=== PATIENT | female | born 1935 ===

== ENCOUNTER 2018-12-20 17:04 | Inpatient (IN) | payer MEDICARE, MEDICAID ==
[2018-12-20 18:20] LABS: BASO % 0.6 % (0.0-2.0); EOS % 0.3 % (0.0-4.0); HEMOGLOBIN 11.4 g/dL (11.0-16.0); LYMPH # 1.6 K/uL (1.0-4.3); LYMPH % 21.5 % (20.0-40.0); MEAN CELL VOLUME 91.9 fL (81.0-99.0); MEAN CORPUSCULAR HEMOGLOBIN 30.6 pg (27.0-31.0); MEAN CORPUSCULAR HGB CONC 33.3 g/dL (33.0-37.0); MEAN PLATELET VOLUME 8.4 fL (7.2-11.7); MONO # 0.8 K/uL (0.0-0.8); MONO % 10.8 % (0.0-10.0); NEUT # 4.9 K/uL (1.8-7.0); NEUT % 66.8 % (50.0-75.0); RBC 3.71 Mil/uL (3.80-5.20); RED CELL DISTRIBUTION WIDTH 13.9 % (11.5-14.5); WHITE BLOOD COUNT 7.3 K/uL (4.8-10.8)
[2018-12-20 18:22] LABS: VENOUS BLOOD GAS BASE EXCESS -2.1 mmol/L (0.0-2.0); VENOUS BLOOD GAS PCO2 29 mmHg (40-60); VENOUS BLOOD GAS PO2 43 mm/Hg (30-55); VENOUS BLOOD PH 7.46 (7.32-7.43)
[2018-12-20 18:26] LABS: SQUAMOUS EPITHIAL 10 /hpf (0-5); URINE BACTERIA RARE (<OCC); URINE BILIRUBIN NEGATIVE (NEGATIVE); URINE BLOOD 1+ (NEGATIVE); URINE CLARITY Hazy (Clear); URINE COLOR Amber (YELLOW); URINE GLUCOSE (UA) NORMAL (Normal); URINE LEUKOCYTE ESTERASE TRACE Leu/uL (Negative); URINE PROTEIN 2+ mg/dL (NEGATIVE)
[2018-12-20 18:45] LABS: ALBUMIN 4.1 g/dL (3.5-5.0); ALT/SGPT 17 U/L (9-52); AST/SGOT 34 U/L (14-36); BLOOD UREA NITROGEN 21 mg/dL (7-17); CALCIUM 9.3 mg/dl (8.6-10.4); GFR NON-AFRICAN AMERICAN 53; LIPASE 53 U/L (23-300)
[2018-12-20] MEDS ORDERED: Potassium Chloride 20 mEq ER Tab PO STA (18:48)
[2018-12-20] MEDS ORDERED: Moxifloxacin IV 400mg/250ml NS 400 MG/250 ML BAG IV ONE (18:55)
[2018-12-20 18:57] LABS: B-TYPE NATRIURETIC PEPTIDE 283 pg/mL (0-900); CK-MB 1.93 ng/mL (0.0-3.38)
[2018-12-20] MEDS ORDERED: Potassium Chloride 20 mEq ER Tab PO ONE (19:21)
[2018-12-20] MEDS ORDERED: Moxifloxacin IV 400mg/250ml NS 400 MG/250 ML BAG IVPB ONE (19:22)
[2018-12-20] MEDS: Moxifloxacin IV 400mg/250ml NS 400 MG/250 ML BAG IVPB SCH (19:31)
--- NOTE | 2018-12-20 19:37 | C.PDOC ---
History Of Present Illness Patient presents to ED c/o perisistent cough/chest congestion, generalized weakness for the past 2-3 days. She states she is unable to get sputum out. Patient denies fever, chest pain, SOB, abdominal pain, nausea/vomiting, diarrhe a. PMhx: HTN, hyperlipidemia Time Seen by Provider: 12/20/18 17:13 Chief Complaint (Nursing): Cough, Cold, Congestion History Per: Patient, Family (daughter at bedside) History/Exam Limitations: no limitations Onset/Duration Of Symptoms: Days (2-3 ) Current Symptoms Are (Timing): Still Present Associated Symptoms: Cough Past Medical History Reviewed: Historical Data, Nursing Documentation, Vital Signs Vital Signs: Last Vital Signs Temp 99.8 F H 12/20/18 19:30 Pulse 81 12/20/18 19:30 Resp 20 12/20/18 19:30 BP 157/71 H 12/20/18 19:30 Pulse Ox 96 12/20/18 19:30 Primary Care Provider: Lupis Iglesias - Medical History PMH: HTN, Hypercholesterolemia Family History: States: No Known Family Hx - Social History Hx Alcohol Use: No Hx Substance Use: No - Immunization History Hx Tetanus Toxoid Vaccination: No Hx Influenza Vaccination: No Hx Pneumococcal Vaccination: No Review Of Systems Constitutional: Positive for: Weakness Cardiovascular: Negative for: Chest Pain, Palpitations Respiratory: Positive for: Cough. Negative for: Shortness of Breath Gastrointestinal: Negative for: Nausea, Vomiting, Abdominal Pain, Diarrhea Genitourinary: Negative for: Dysuria Skin: Negative for: Rash Neurological: Negative for: Weakness, Numbness, Headache, Dizziness Physical Exam - Physical Exam Appears: Well, Non-toxic, No Acute Distress Skin: Normal Color, Warm, Dry Eye(s): bilateral: Normal Inspection Oral Mucosa: Moist Chest: Symmetrical Cardiovascular: Rhythm Regular Respiratory: No Accessory Muscle Use, No Rales, Rhonchi (left lower lobe), No Wheezing Gastrointestinal/Abdominal: Normal Exam, Bowel Sounds, Soft, No Tenderness Extremity: Normal ROM, No Pedal Edema, No Calf Tenderness Pulses: Left Dorsalis Pedis: Normal, Right Dorsalis Pedis: Normal Neurological/Psych: Oriented x3 ED Course And Treatment - Laboratory Results Result Diagrams: 12/20/18 18:15 12/20/18 18:15 Lab Results: pO2 43 mm/Hg (30-55) 12/20/18 18:15 VBG pH 7.46 (7.32-7.43) H 12/20/18 18:15 VBG pCO2 29 mmHg (40-60) L 12/20/18 18:15 VBG HCO3 22.9 mmol/L 12/20/18 18:15 VBG Total CO2 21.5 mmol/L (22-28) L 12/20/18 18:15 VBG O2 Sat (Calc) 84.0 % (40-65) H 12/20/18 18:15 VBG Base Excess -2.1 mmol/L (0.0-2.0) L 12/20/18 18:15 VBG Potassium 2.2 mmol/L (3.6-5.2) L* 12/20/18 18:15 Sodium 143.0 mmol/l (132-148) 12/20/18 18:15 Chloride 113.0 mmol/L (98-107) H 12/20/18 18:15 Glucose 85 mg/dl (65-105) 12/20/18 18:15 Lactate 1.2 mmol/L (0.7-2.1) 12/20/18 18:15 Crit Value Called To Dr noland 12/20/18 18:15 Crit Value Called By 12/20/18 18:15 Crit Value Read Back Y 12/20/18 18:15 Blood Gas Notified Time 1822 12/20/18 18:15 Troponin I < 0.0120 ng/mL (0.00-0.120) 12/20/18 18:15 NT-Pro-B Natriuret Pep 283 pg/mL (0-900) 12/20/18 18:15 Total Bilirubin 0.6 mg/dL (0.2-1.3) 12/20/18 18:15 AST 34 U/L (14-36) 12/20/18 18:15 ALT 17 U/L (9-52) 12/20/18 18:15 Alkaline Phosphatase 60 U/L (38-126) 12/20/18 18:15 Total Protein 8.4 g/dL (6.3-8.3) H 12/20/18 18:15 Albumin 4.1 g/dL (3.5-5.0) 12/20/18 18:15 Globulin 4.3 gm/dL (2.2-3.9) H 12/20/18 18:15 Albumin/Globulin Ratio 1.0 (1.0-2.1) 12/20/18 18:15 Lipase 53 U/L (23-300) 12/20/18 18:15 Urine Color Lucy (YELLOW) 12/20/18 18:15 Urine Clarity Hazy (Clear) 12/20/18 18:15 Urine pH 5.0 (5.0-8.0) 12/20/18 18:15 Ur Specific [place] 1.027 (1.003-1.030) 12/20/18 18:15 Urine Protein 2+ mg/dL (NEGATIVE) H 12/20/18 18:15 Urine Glucose (UA) Normal mg/dL (Normal) 12/20/18 18:15 Urine Ketones Trace mg/dL (NEGATIVE) 12/20/18 18:15 Urine Blood 1+ (NEGATIVE) H 12/20/18 18:15 Urine Nitrate Negative (NEGATIVE) 12/20/18 18:15 Urine Bilirubin Negative (NEGATIVE) 12/20/18 18:15 Urine Urobilinogen 2.0 mg/dL (0.2-1.0) H 12/20/18 18:15 Ur Leukocyte Esterase Trace [place]/uL (Negative) 12/20/18 18:15 Urine WBC (Auto) 7 /hpf (0-5) H 12/20/18 18:15 Urine RBC (Auto) 23 /hpf (0-3) H 12/20/18 18:15 Ur Squamous Epith Cells 10 /hpf (0-5) H 12/20/18 18:15 Urine Bacteria Rare (<OCC) 12/20/18 18:15 ECG: Interpreted By Me, Viewed By Me (sinus rhythm 87 bpm, PVCs, normal axis, Q waves III, aVF, T wave inversions III, aVF, V3-V6) ECG Interpretation: Abnormal O2 Sat by Pulse Oximetry: 93 (RA) Pulse Ox Interpretation: Abnormal - Radiology CXR: Interpreted by Me, Viewed By Me (left lower lobe infiltrate ) Progress Note: Blood work, CXr, EKG ordered and reviewed. Patient given IV Avelox.
[2018-12-20] MEDS ORDERED: guaiFENesin 100 mg/5 ml Syrup UD ONE (20:00)
[2018-12-20] MEDS: DEXTROSE IV SCH (20:00)
[2018-12-20] MEDS: [UNRECOGNIZED DRUG - OTHER] IV SCH (20:00)
[2018-12-20] MEDS: guaiFENesin 100 mg/5 ml Syrup UD PO PRN (20:01)
[2018-12-21] MEDS ORDERED: Aluminum Hydroxide/Magnesium Hydroxide Susp (30 mL) PO ONE (00:41)
[2018-12-21] MEDS: guaiFENesin 100 mg/5 ml Syrup UD PO PRN ×3 (00:59→19:00)
--- NOTE | 2018-12-21 08:48 | CP.PCM.PN ---
Subjective - Date & Time of Evaluation Date of Evaluation: 12/21/18 Time of Evaluation: 08:00 - Subjective Subjective: PT reports feeling pt still coughing but denies sob Objective - Vital Signs/Intake and Output Vital Signs (last 24 hours): Temp Pulse Resp BP Pulse Ox 98.8 F 83 20 162/77 H 96 12/21/18 08:00 12/21/18 08:00 12/21/18 08:00 12/21/18 08:00 12/21/18 08:00 - Medications Medications: Current Medications Acetaminophen (Tylenol 325mg Tab) 650 mg PO Q6 PRN PRN Reason: Fever >100.4 F Last Admin: 12/21/18 00:59 Dose: 650 mg Enoxaparin Sodium (Lovenox) 40 mg SC DAILY [facility] Guaifenesin (Robitussin) 100 mg PO Q4H PRN PRN Reason: Cough Last Admin: 12/21/18 00:59 Dose: 100 mg Dextrose/Sodium Chloride (Dextrose 5%/0.45% Ns 1000 Ml) 2,000 mls @ 60 mls/hr IV .Q24H [facility] Last Admin: 12/20/18 20:00 Dose: 60 mls/hr Moxifloxacin HCl (Avelox Iv 400mg/250ml Ns) 400 mg in 250 mls @ 167 mls/hr IVPB Q24H [facility]; Protocol Last Admin: 12/20/18 19:31 Dose: Not Given Losartan Potassium (Cozaar) 100 mg PO DAILY [facility] Pantoprazole Sodium (Protonix Ec Tab) 40 mg PO DAILY [facility] - Labs Labs: 12/20/18 18:15 12/20/18 18:15 - Constitutional Appears: Well, Non-toxic - ENT Exam ENT Exam: Mucous Membranes Moist - Respiratory Exam Respiratory Exam: Rhonchi - Cardiovascular Exam Cardiovascular Exam: REGULAR RHYTHM, RRR, +S1, +S2. absent: JVD - GI/Abdominal Exam GI & Abdominal Exam: Soft, Normal Bowel Sounds. absent: Tenderness - Extremities Exam Extremities Exam: Full ROM. absent: Joint Swelling Assessment and Plan - Assessment and Plan (Free Text) Assessment: community acquired pnemonia iv abx fluids oxyen plumental bp stble hypokalemia replace K and monitor
--- NOTE | 2018-12-21 08:48 | CP.PCM.HP ---
History of Present Illness - History of Present Illness History of Present Illness: cc: cough and weakness Past Patient History - Infectious Disease Hx of Infectious Diseases: None - Past Social History Smoking Status: Never Smoked - CARDIAC Hx Hypercholesterolemia: Yes Hx Hypertension: Yes - HEMATOLOGICAL/ONCOLOGICAL Hx Cancer: Yes (BREAST) - GENITOURINARY/GYNECOLOGICAL Other/Comment: R breast CA - PSYCHIATRIC Hx Substance Use: No - SURGICAL HISTORY Hx Surgeries: Yes Hx Hysterectomy: Yes Other/Comment: MASTECTOMY - ANESTHESIA Hx Anesthesia: Yes Meds Home Medications: Home Medication List Medication Instructions Recorded Confirmed Type Fluticasone Propionate [Flonase] 1 spr VANITA BID 30 Days bottle 12/24/18 Rx Fluticasone/Salmeterol [Advair 1 each IH BID #1 blst.w.dev 12/24/18 Rx 250-50 Diskus] Losartan [Cozaar] 100 mg PO DAILY tab 12/24/18 Rx Montelukast [Singulair] 10 mg PO HS #20 tab 12/24/18 Rx Moxifloxacin [Avelox] 400 mg PO Q24H 5 Days #5 tab 12/24/18 Rx Allergies/Adverse Reactions: Allergies Allergy/AdvReac Type Severity Reaction Status Date / Time aspirin Allergy Verified 12/28/17 19:52 Penicillins Allergy Verified 12/28/17 19:52 Results - Vital Signs Recent Vital Signs: Last Vital Signs Temp 98.8 F 12/21/18 08:00 Pulse 83 12/21/18 08:00 Resp 20 12/21/18 08:00 BP 162/77 H 12/21/18 08:00 Pulse Ox 96 12/21/18 08:00 - Labs Result Diagrams: 12/20/18 18:15 12/24/18 06:54 Labs: Laboratory Results - last 24 hr 12/20/18 12/20/18 12/20/18 18:15 18:15 18:15 WBC 7.3 RBC 3.71 L Hgb 11.4 Hct 34.1 MCV 91.9 MCH 30.6 MCHC 33.3 RDW 13.9 Plt Count 141 MPV 8.4 Neut % (Auto) 66.8 Lymph % (Auto) 21.5 [place] % (Auto) 10.8 H Eos % (Auto) 0.3 Baso % (Auto) 0.6 Neut # (Auto) 4.9 Lymph # (Auto) 1.6 [place] # (Auto) 0.8 Eos # (Auto) 0.0 Baso # (Auto) 0.0 pO2 43 VBG pH 7.46 H VBG pCO2 29 L VBG HCO3 22.9 VBG Total CO2 21.5 L VBG O2 Sat (Calc) 84.0 H VBG Base Excess -2.1 L VBG Potassium 2.2 L* Sodium 143.0 Chloride 113.0 H Glucose 85 Lactate 1.2 Crit Value Called To Dr noland Crit Value Called By [email or web address] Crit Value Read Back Y Blood Gas Notified Time 1822 Potassium Carbon Dioxide Anion Gap BUN Creatinine Est GFR ( Amer) Est GFR (Non-Af Amer) Random Glucose Calcium Total Bilirubin AST ALT Alkaline Phosphatase CK-MB (Mass) Troponin I NT-Pro-B Natriuret Pep Total Protein Albumin Globulin Albumin/Globulin Ratio Lipase Venous Blood Potassium 2.2 L* Urine Color Lucy Urine Clarity Hazy Urine pH 5.0 Ur Specific [place] 1.027 Urine Protein 2+ H Urine Glucose (UA) Normal Urine Ketones Trace Urine Blood 1+ H Urine Nitrate Negative Urine Bilirubin Negative Urine Urobilinogen 2.0 H Ur Leukocyte Esterase Trace Urine WBC (Auto) 7 H Urine RBC (Auto) 23 H Ur Squamous Epith Cells 10 H Urine Bacteria Rare 12/20/18 18:15 WBC RBC Hgb Hct MCV MCH MCHC RDW Plt Count MPV Neut % (Auto) Lymph % (Auto) [place] % (Auto) Eos % (Auto) Baso % (Auto) Neut # (Auto) Lymph # (Auto) [place] # (Auto) Eos # (Auto) Baso # (Auto) pO2 VBG pH VBG pCO2 VBG HCO3 VBG Total CO2 VBG O2 Sat (Calc) VBG Base Excess VBG Potassium Sodium 138 Chloride 101 Glucose Lactate Crit Value Called To Crit Value Called By Crit Value Read Back Blood Gas Notified Time Potassium 3.2 L Carbon Dioxide 25 Anion Gap 15 BUN 21 H Creatinine 1.0 Est GFR ( Amer) > 60 Est GFR (Non-Af Amer) 53 Random Glucose 118 H Calcium 9.3 Total Bilirubin 0.6 AST 34 ALT 17 Alkaline Phosphatase 60 CK-MB (Mass) 1.93 Troponin I < 0.0120 NT-Pro-B Natriuret Pep 283 Total Protein 8.4 H Albumin 4.1 Globulin 4.3 H Albumin/Globulin Ratio 1.0 Lipase 53 Venous Blood Potassium Urine Color Urine Clarity Urine pH Ur Specific [place] Urine Protein Urine Glucose (UA) Urine Ketones Urine Blood Urine Nitrate Urine Bilirubin Urine Urobilinogen Ur Leukocyte Esterase Urine WBC (Auto) Urine RBC (Auto) Ur Squamous Epith Cells Urine Bacteria
[2018-12-21] MEDS: Pantoprazole 40 mg EC Tab PO SCH (10:20)
[2018-12-21] MEDS: Enoxaparin 40 mg Syringe SC SCH (10:20)
--- NOTE | 2018-12-21 10:36 | RAD ---
Date of service: 12/20/2018 PROCEDURE: CHEST RADIOGRAPH, 1 VIEW HISTORY: COUGH, FEVER COMPARISON: Comparison is made with 01/09/2018 FINDINGS: LUNGS: There is a new infiltrate and consolidation in the left lower lobe suspicious for pneumonia. PLEURA: No pneumothorax or pleural fluid seen. CARDIOVASCULAR: No aortic atherosclerotic calcification present. Normal. OSSEOUS STRUCTURES: No significant abnormalities. VISUALIZED UPPER ABDOMEN: Normal. OTHER FINDINGS: None. IMPRESSION: New consolidation and infiltrate in the left lower lung suspicious for pneumonia.
[2018-12-21 11:27] LABS: BLOOD UREA NITROGEN 19 mg/dL (7-17); CALCIUM 8.8 mg/dl (8.6-10.4); GFR NON-AFRICAN AMERICAN 60
[2018-12-21] MEDS: [UNRECOGNIZED DRUG - OTHER] IV SCH ×2 (13:04→22:20)
[2018-12-21] MEDS: DEXTROSE IV SCH ×2 (13:04→22:20)
[2018-12-21] MEDS: Moxifloxacin IV 400mg/250ml NS 400 MG/250 ML BAG IVPB SCH (18:55)
[2018-12-22] MEDS: guaiFENesin 100 mg/5 ml Syrup UD PO PRN (07:33)
[2018-12-22 08:18] LABS: BLOOD UREA NITROGEN 13 mg/dL (7-17); CALCIUM 8.9 mg/dl (8.6-10.4); GFR NON-AFRICAN AMERICAN 60
[2018-12-22] MEDS: Enoxaparin 40 mg Syringe SC SCH (08:59)
[2018-12-22] MEDS: Pantoprazole 40 mg EC Tab PO SCH (08:59)
[2018-12-22] MEDS: [UNRECOGNIZED DRUG - OTHER] IV SCH (09:03)
[2018-12-22] MEDS: DEXTROSE IV SCH (09:03)
--- NOTE | 2018-12-22 17:06 | CP.PCM.PN ---
Subjective - Date & Time of Evaluation Date of Evaluation: 12/22/18 Time of Evaluation: 17:06 - Subjective Subjective: Pt states she has hd difficulty sleeping in hospital and has a poor appetite pt seem nervous, daughter is at bedside and still she "gets anxious like that sometimes at home" PT reports cough, not improving low grade Temp this AM Objective - Vital Signs/Intake and Output Vital Signs (last 24 hours): Temp Pulse Resp BP Pulse Ox 98.2 F 80 18 150/79 97 12/22/18 14:00 12/22/18 07:00 12/22/18 07:00 12/22/18 07:00 12/22/18 11:30 Intake and Output: 12/22/18 12/22/18 06:59 18:59 Intake Total 880 Balance 880 - Medications Medications: Current Medications Acetaminophen (Tylenol 325mg Tab) 650 mg PO Q6 PRN PRN Reason: Fever >100.4 F Last Admin: 12/22/18 07:30 Dose: 650 mg Albuterol/Ipratropium (Duoneb 3 Mg/0.5 Mg (3 Ml) Ud) 3 ml INH RQ6 [facility] Budesonide (Pulmicort Respules) 0.5 mg INH RQ12 [facility] Enoxaparin Sodium (Lovenox) 40 mg SC DAILY [facility] Last Admin: 12/22/18 08:59 Dose: Not Given Fluticasone Propionate (Flonase) 1 spr VANITA BID [facility] Guaifenesin (Robitussin) 100 mg PO Q4H PRN PRN Reason: Cough Last Admin: 12/22/18 07:33 Dose: 100 mg Dextrose/Sodium Chloride (Dextrose 5%/0.45% Ns 1000 Ml) 2,000 mls @ 60 mls/hr IV .Q24H [facility] Last Admin: 12/22/18 09:03 Dose: 60 mls/hr Moxifloxacin HCl (Avelox Iv 400mg/250ml Ns) 400 mg in 250 mls @ 167 mls/hr IVPB Q24H [facility]; Protocol Last Admin: 12/21/18 18:55 Dose: 167 mls/hr Losartan Potassium (Cozaar) 100 mg PO DAILY [facility] Last Admin: 12/22/18 09:00 Dose: 100 mg Montelukast Sodium (Singulair) 10 mg PO HS [facility] Pantoprazole Sodium (Protonix Ec Tab) 40 mg PO DAILY [facility] Last Admin: 12/22/18 08:59 Dose: 40 mg Potassium Chloride (Potassium Chloride Oral Soln) 40 meq PO ONCE ONE Stop: 12/22/18 20:01 - Labs Labs: 12/20/18 18:15 12/22/18 07:54 - Constitutional Appears: Non-toxic - Eye Exam Eye Exam: Normal appearance - ENT Exam ENT Exam: Mucous Membranes Moist - Respiratory Exam Respiratory Exam: Prolonged Expiratory Phase, Rhonchi (more ronchi today) - GI/Abdominal Exam GI & Abdominal Exam: Soft, Normal Bowel Sounds. absent: Tenderness - Extremities Exam Extremities Exam: absent: Joint Swelling Assessment and Plan - Assessment and Plan (Free Text) Assessment: CAP: does not seem better today increased ronchi low grade temp this Am cont abx cxr nebs bp stable Hypokalemia replaced K monitor bpM
[2018-12-22] MEDS: Fluticasone Nasal 50 mcg/Spray NAS SCH (18:07)
[2018-12-22] MEDS: Moxifloxacin IV 400mg/250ml NS 400 MG/250 ML BAG IVPB SCH (19:09)
--- NOTE | 2018-12-22 19:48 | CARD ---
APPROVED REPORT Date of service: 12/20/2018 EKG Measurement Heart [id number] [id number] [id number] <Conclusion> Sinus rhythm with occasional premature ventricular complexes Moderate voltage criteria for LVH, may be normal variant Inferior infarct, age undetermined Abnormal ECG
[2018-12-22] MEDS ORDERED: Potassium Chloride 20 mEq/15 ml LIQ UD PO ONE (20:00)
[2018-12-22] MEDS: Albuterol-Ipratrop 3 mg / 0.5 (3 ml) UD INH SCH (20:52)
[2018-12-22] MEDS: Budesonide 0.5 mg/2 ml Inhal Susp UD INH SCH (20:52)
[2018-12-23 01:45] VITALS: RESP 20
[2018-12-23] MEDS: Albuterol-Ipratrop 3 mg / 0.5 (3 ml) UD INH SCH ×4 (02:56→20:52)
[2018-12-23 06:53] LABS: BLOOD UREA NITROGEN 9 mg/dL (7-17); CALCIUM 8.4 mg/dl (8.6-10.4); GFR NON-AFRICAN AMERICAN > 60
--- NOTE | 2018-12-23 09:23 | RAD ---
Date of service: 12/22/2018 HISTORY: cough COMPARISON: 12/20/2018 TECHNIQUE: 1 view obtained. FINDINGS: LUNGS: No active pulmonary disease. PLEURA: No significant pleural effusion identified, no pneumothorax apparent. CARDIOVASCULAR: No aortic atherosclerotic calcification present. Normal cardiac size. No pulmonary vascular congestion. OSSEOUS STRUCTURES: No significant abnormalities. VISUALIZED UPPER ABDOMEN: Normal. OTHER FINDINGS: None. IMPRESSION: No active disease.
[2018-12-23] MEDS: Pantoprazole 40 mg EC Tab PO SCH (09:29)
[2018-12-23] MEDS: Enoxaparin 40 mg Syringe SC SCH (09:29)
[2018-12-23] MEDS: Fluticasone Nasal 50 mcg/Spray NAS SCH ×2 (09:30→17:54)
[2018-12-23] MEDS: guaiFENesin 100 mg/5 ml Syrup UD PO PRN (11:17)
[2018-12-23] MEDS: Budesonide 0.5 mg/2 ml Inhal Susp UD INH SCH ×2 (11:56→20:52)
--- NOTE | 2018-12-23 18:47 | CP.PCM.PN ---
Subjective - Date & Time of Evaluation Date of Evaluation: 12/23/18 Time of Evaluation: 18:48 - Subjective Subjective: Pt reports feeling better today but still poor appetite much less wheezing today no chest pain family at bed side Objective - Vital Signs/Intake and Output Vital Signs (last 24 hours): Temp Pulse Resp BP Pulse Ox 98.1 F 79 20 143/74 94 L 12/23/18 15:00 12/23/18 15:00 12/23/18 15:00 12/23/18 15:00 12/23/18 15:00 Intake and Output: 12/23/18 12/23/18 06:59 18:59 Intake Total 580 Balance 580 - Medications Medications: Current Medications Acetaminophen (Tylenol 325mg Tab) 650 mg PO Q6 PRN PRN Reason: Fever >100.4 F Last Admin: 12/22/18 07:30 Dose: 650 mg Albuterol/Ipratropium (Duoneb 3 Mg/0.5 Mg (3 Ml) Ud) 3 ml INH RQ6 [facility] Last Admin: 12/23/18 11:56 Dose: 3 ml Budesonide (Pulmicort Respules) 0.5 mg INH RQ12 [facility] Last Admin: 12/23/18 11:56 Dose: 0.5 mg Enoxaparin Sodium (Lovenox) 40 mg SC DAILY [facility] Last Admin: 12/23/18 09:29 Dose: Not Given Fluticasone Propionate (Flonase) 1 spr VANITA BID [facility] Last Admin: 12/23/18 17:54 Dose: 1 spr Guaifenesin (Robitussin) 100 mg PO Q4H PRN PRN Reason: Cough Last Admin: 12/23/18 11:17 Dose: 100 mg Dextrose/Sodium Chloride (Dextrose 5%/0.45% Ns 1000 Ml) 2,000 mls @ 60 mls/hr IV .Q24H [facility] Last Admin: 12/22/18 09:03 Dose: 60 mls/hr Losartan Potassium (Cozaar) 100 mg PO DAILY [facility] Last Admin: 12/23/18 09:29 Dose: 100 mg Montelukast Sodium (Singulair) 10 mg PO HS [facility] Last Admin: 12/22/18 22:09 Dose: 10 mg Moxifloxacin HCl (Avelox) 400 mg PO Q24H [facility] Stop: 12/25/18 19:01 Pantoprazole Sodium (Protonix Ec Tab) 40 mg PO DAILY [facility] Last Admin: 12/23/18 09:29 Dose: 40 mg - Labs Labs: 12/20/18 18:15 12/23/18 06:32 - Constitutional Appears: Non-toxic - Eye Exam Eye Exam: Normal appearance - ENT Exam ENT Exam: Mucous Membranes Moist - Respiratory Exam Respiratory Exam: Rhonchi (left base ronchi better) Assessment and Plan - Assessment and Plan (Free Text) Assessment: CAP cont abx reactive asthma; nebs oob pt hep lock discussed care with family and patient at bed side.
[2018-12-24] MEDS: Albuterol-Ipratrop 3 mg / 0.5 (3 ml) UD INH SCH ×3 (02:30→13:27)
[2018-12-24 04:39] VITALS: TEMP 98.5
[2018-12-24 07:18] LABS: BLOOD UREA NITROGEN 9 mg/dL (7-17); CALCIUM 8.7 mg/dl (8.6-10.4); GFR NON-AFRICAN AMERICAN > 60
[2018-12-24 07:49] VITALS: BP 155/73; PULSE 78; O2SAT 96
[2018-12-24] MEDS: Budesonide 0.5 mg/2 ml Inhal Susp UD INH SCH (09:12)
[2018-12-24] MEDS: Pantoprazole 40 mg EC Tab PO SCH (11:00)
[2018-12-24] MEDS: Fluticasone Nasal 50 mcg/Spray NAS SCH (11:00)
[2018-12-24] MEDS: Enoxaparin 40 mg Syringe SC SCH (11:00)
--- NOTE | 2018-12-24 14:07 | CP.PCM.DIS ---
Provider - Provider Date of Admission: 12/22/18 16:56 Attending physician: Lupis Iglesias MD Time Spent in preparation of Discharge (in minutes): 30 Hospital Course - Lab Results Lab Results: Micro Results 12/20/18 18:30 Blood Blood Culture - Preliminary NO GROWTH AFTER 3 DAYS 12/20/18 18:00 Blood Blood Culture - Preliminary NO GROWTH AFTER 3 DAYS 12/20/18 18:15 Urine Random Urine Culture - Final 10-50,000 CFU/ML. MULTIPLE SPECIES. PROBABLE CONTAMINATION. Most Recent Lab Values WBC 7.3 K/uL (4.8-10.8) 12/20/18 18:15 RBC 3.71 Mil/uL (3.80-5.20) L 12/20/18 18:15 Hgb 11.4 g/dL (11.0-16.0) 12/20/18 18:15 Hct 34.1 % (34.0-47.0) 12/20/18 18:15 MCV 91.9 fL (81.0-99.0) 12/20/18 18:15 MCH 30.6 pg (27.0-31.0) 12/20/18 18:15 MCHC 33.3 g/dL (33.0-37.0) 12/20/18 18:15 RDW 13.9 % (11.5-14.5) 12/20/18 18:15 Plt Count 141 K/uL (130-400) 12/20/18 18:15 MPV 8.4 fL (7.2-11.7) 12/20/18 18:15 Neut % (Auto) 66.8 % (50.0-75.0) 12/20/18 18:15 Lymph % (Auto) 21.5 % (20.0-40.0) 12/20/18 18:15 [place] % (Auto) 10.8 % (0.0-10.0) H 12/20/18 18:15 Eos % (Auto) 0.3 % (0.0-4.0) 12/20/18 18:15 Baso % (Auto) 0.6 % (0.0-2.0) 12/20/18 18:15 Neut # (Auto) 4.9 K/uL (1.8-7.0) 12/20/18 18:15 Lymph # (Auto) 1.6 K/uL (1.0-4.3) 12/20/18 18:15 [place] # (Auto) 0.8 K/uL (0.0-0.8) 12/20/18 18:15 Eos # (Auto) 0.0 K/uL (0.0-0.7) 12/20/18 18:15 Baso # (Auto) 0.0 K/uL (0.0-0.2) 12/20/18 18:15 pO2 43 mm/Hg (30-55) 12/20/18 18:15 VBG pH 7.46 (7.32-7.43) H 12/20/18 18:15 VBG pCO2 29 mmHg (40-60) L 12/20/18 18:15 VBG HCO3 22.9 mmol/L 12/20/18 18:15 VBG Total CO2 21.5 mmol/L (22-28) L 12/20/18 18:15 VBG O2 Sat (Calc) 84.0 % (40-65) H 12/20/18 18:15 VBG Base Excess -2.1 mmol/L (0.0-2.0) L 12/20/18 18:15 VBG Potassium 2.2 mmol/L (3.6-5.2) L* 12/20/18 18:15 Sodium 143.0 mmol/l (132-148) 12/20/18 18:15 Chloride 113.0 mmol/L (98-107) H 12/20/18 18:15 Glucose 85 mg/dl (65-105) 12/20/18 18:15 Lactate 1.2 mmol/L (0.7-2.1) 12/20/18 18:15 Crit Value Called To Dr noland 12/20/18 18:15 Crit Value Called By [email or web address] 12/20/18 18:15 Crit Value Read Back Y 12/20/18 18:15 Blood Gas Notified Time 1822 12/20/18 18:15 Sodium 141 mmol/L (132-148) 12/24/18 06:54 Potassium 3.6 mmol/L (3.6-5.2) 12/24/18 06:54 Chloride 109 mmol/L (98-107) H 12/24/18 06:54 Carbon Dioxide 25 mmol/L (22-30) 12/24/18 06:54 Anion Gap 11 (10-20) 12/24/18 06:54 BUN 9 mg/dL (7-17) 12/24/18 06:54 Creatinine 0.8 mg/dL (0.7-1.2) 12/24/18 06:54 Est GFR ( Amer) > 60 12/24/18 06:54 Est GFR (Non-Af Amer) > 60 12/24/18 06:54 POC Glucose (mg/dL) 125 mg/dL (65-110) H 12/22/18 11:10 Random Glucose 113 mg/dL (65-105) H 12/24/18 06:54 Calcium 8.7 mg/dl (8.6-10.4) 12/24/18 06:54 Phosphorus 2.1 mg/dL (2.5-4.5) L 12/21/18 11:05 Magnesium 1.7 mg/dL (1.6-2.3) 12/21/18 11:05 Total Bilirubin 0.6 mg/dL (0.2-1.3) 12/20/18 18:15 AST 34 U/L (14-36) 12/20/18 18:15 ALT 17 U/L (9-52) 12/20/18 18:15 Alkaline Phosphatase 60 U/L (38-126) 12/20/18 18:15 CK-MB (Mass) 1.93 ng/mL (0.0-3.38) 12/20/18 18:15 Troponin I < 0.0120 ng/mL (0.00-0.120) 12/20/18 18:15 NT-Pro-B Natriuret Pep 283 pg/mL (0-900) 12/20/18 18:15 Total Protein 8.4 g/dL (6.3-8.3) H 12/20/18 18:15 Albumin 4.1 g/dL (3.5-5.0) 12/20/18 18:15 Globulin 4.3 gm/dL (2.2-3.9) H 12/20/18 18:15 Albumin/Globulin Ratio 1.0 (1.0-2.1) 12/20/18 18:15 Lipase 53 U/L (23-300) 12/20/18 18:15 Venous Blood Potassium 2.2 mmol/L (3.6-5.2) L* 12/20/18 18:15 Urine Color Lucy (YELLOW) 12/20/18 18:15 Urine Clarity Hazy (Clear) 12/20/18 18:15 Urine pH 5.0 (5.0-8.0) 12/20/18 18:15 Ur Specific [place] 1.027 (1.003-1.030) 12/20/18 18:15 Urine Protein 2+ mg/dL (NEGATIVE) H 12/20/18 18:15 Urine Glucose (UA) Normal mg/dL (Normal) 12/20/18 18:15 Urine Ketones Trace mg/dL (NEGATIVE) 12/20/18 18:15 Urine Blood 1+ (NEGATIVE) H 12/20/18 18:15 Urine Nitrate Negative (NEGATIVE) 12/20/18 18:15 Urine Bilirubin Negative (NEGATIVE) 12/20/18 18:15 Urine Urobilinogen 2.0 mg/dL (0.2-1.0) H 12/20/18 18:15 Ur Leukocyte Esterase Trace [place]/uL (Negative) 12/20/18 18:15 Urine WBC (Auto) 7 /hpf (0-5) H 12/20/18 18:15 Urine RBC (Auto) 23 /hpf (0-3) H 12/20/18 18:15 Ur Squamous Epith Cells 10 /hpf (0-5) H 12/20/18 18:15 Urine Bacteria Rare (<OCC) 12/20/18 18:15 - Hospital Course Hospital Course: Pt admitted with pneumonia treated [facility] hospital stay unremarkable pt feels well ambulatory no sob Discharge Exam - Eye Exam Eye Exam: Normal appearance - ENT Exam ENT Exam: Mucous Membranes Dry - Respiratory Exam Respiratory Exam: Clear to PA & Lateral - Cardiovascular Exam Cardiovascular Exam: REGULAR RHYTHM, RRR, +S1, +S2. absent: JVD - GI/Abdominal Exam GI & Abdominal Exam: Normal Bowel Sounds. absent: Mass - Psychiatric Exam Psychiatric exam: Normal Affect Discharge Plan - Discharge Medications Prescriptions: Fluticasone/Salmeterol [Advair 250-50 Diskus] 1 each IH BID #1 blst.w.dev Moxifloxacin [Avelox] 400 mg PO Q24H 5 Days #5 tab Fluticasone Propionate [Flonase] 1 spr VANITA BID 30 Days bottle Montelukast [Singulair] 10 mg PO HS #20 tab - Follow Up Plan Condition: GOOD
[2018-12-24] MEDS ORDERED: Arformoterol 15 mcg/2 ml Inh Sol INH SCH (20:00)
[2018-12-24] MEDS ORDERED: Budesonide 0.5 mg/2 ml Inhal Susp UD INH SCH (20:00)
== END 2018-12-24 17:03 | disposition home or self-care (01) | DRG 195 ==
LOC: C.ER 17:04 → C.9E 18:55 → C.6T 19:43 → OBSVTOIN 12-22 16:56
PROVIDERS: ADMIT Internal Medicine; ATTEND Internal Medicine
DX: J18.9 Pneumonia, unspecified organism (principal); E87.6 Hypokalemia; J45.909 Unspecified asthma, uncomplicated; R09.89 Other specified symptoms and signs involving the circulatory and respiratory systems; I10 Essential (primary) hypertension; R63.0 Anorexia; E78.5 Hyperlipidemia, unspecified; E78.00 Pure hypercholesterolemia, unspecified; Z85.3 Personal history of malignant neoplasm of breast; Z90.11 Acquired absence of right breast and nipple; Z90.710 Acquired absence of both cervix and uterus; Z79.899 Other long term (current) drug therapy